=== PATIENT | male | born 1995 | race Caucasian/White ===

== ENCOUNTER 2024-08-17 21:36 | Emergency (ER) | payer MEDICAID, SELFPAY ==
[~2024-08-17] VITALS: Ht 180.3 cm; Wt 116.6 kg
[2024-08-17 21:39] VITALS: BP 170/102; TEMP 97; O2SAT 97
== END 2024-08-17 22:22 | disposition left against medical advice (07) ==
LOC: M ED 21:36
DX: Z53.21 Procedure and treatment not carried out due to patient leaving prior to being seen by health care provider (principal)